=== PATIENT | male | born 1960 | race Caucasian/White ===

== ENCOUNTER 2024-05-27 09:51 | Outpatient (REF) | payer MEDICARE, OTHER, SELFPAY | END 2024-05-27 09:52 | disposition home or self-care (01) | LOC: HO.US 09:51 | PROVIDERS: Visit Provider Internal Medicine | DX: Z13.89 Encounter for screening for other disorder (principal) ==

== ENCOUNTER 2024-05-30 12:07 | Outpatient (REF) | payer MEDICARE, OTHER, SELFPAY ==
--- NOTE | ~2024-05-30 | US_ITS ---
EXAMINATION: ULTRASOUND OF KIDNEYS WITH RENAL ARTERY DOPPLER CLINICAL INFORMATION: Hypertension. COMPARISON: None available. TECHNIQUE: Ultrasound of the kidneys was performed along with color flow Doppler imaging and velocity measurements in the proximal mid and distal renal arteries. Aortic velocities were measured and renal/aortic ratios were calculated. Interlobar resistive indices were measured. FINDINGS: The kidneys appeared normal with the right kidney measuring 13.9 x 7.6 x 6.4 cm and the left kidney measuring 14.1 x 7.1 x 5.4 cm. No renal masses, renal stones or hydronephrosis is seen. Renal cortical thickness appears normal. Velocity measurements in the proximal mid and distal renal arteries are normal with the exception of the left renal artery which was not seen in its proximal and mid portions. Interlobar resistive indices were all normal. Velocity in the aorta is normal and, therefore, the renal aortic ratios are normal.. The bladder appeared unremarkable. US/US renal doppler IMPRESSION: No evidence to suggest renal artery stenosis. The proximal and mid left renal artery was not seen. Electronically signed by: Jared Funes MD 07/31/2024 12:15 AM [facility]
--- NOTE | ~2024-05-30 | US_ITS ---
EXAMINATION: ULTRASOUND OF KIDNEYS WITH RENAL ARTERY DOPPLER CLINICAL INFORMATION: Hypertension. COMPARISON: None available. TECHNIQUE: Ultrasound of the kidneys was performed along with color flow Doppler imaging and velocity measurements in the proximal mid and distal renal arteries. Aortic velocities were measured and renal/aortic ratios were calculated. Interlobar resistive indices were measured. FINDINGS: The kidneys appeared normal with the right kidney measuring 13.9 x 7.6 x 6.4 cm and the left kidney measuring 14.1 x 7.1 x 5.4 cm. No renal masses, renal stones or hydronephrosis is seen. Renal cortical thickness appears normal. Velocity measurements in the proximal mid and distal renal arteries are normal with the exception of the left renal artery which was not seen in its proximal and mid portions. Interlobar resistive indices were all normal. Velocity in the aorta is normal and, therefore, the renal aortic ratios are normal.. The bladder appeared unremarkable. US/US renal BI IMPRESSION: No evidence to suggest renal artery stenosis. The proximal and mid left renal artery was not seen. Electronically signed by: Jared Funes MD 07/31/2024 12:15 AM [facility]
== END 2024-05-30 12:08 | disposition home or self-care (01) ==
LOC: HO.US 12:07
PROVIDERS: Visit Provider Internal Medicine
DX: I10 Essential (primary) hypertension (principal); I70.1 Atherosclerosis of renal artery
CPT/HCPCS: 76775; 93975